=== PATIENT | male | born 1985 | race Caucasian/White ===

== ENCOUNTER 2017-07-01 19:56 | Inpatient (IN) | payer SELFPAY, OTHER ==
[~2017-07-01 19:56] MED LIST: ETOMIDATE 20 MG INJ; PROPOFOL 200 MG INJ; SUCCINYLCHOLINE CHLORIDE 100 MG/5 ML SYG IV
[2017-07-01] MEDS ORDERED: HALOPERIDOL 5 MG INJ (22:32)
[2017-07-01] MEDS ORDERED: LORAZEPAM 2 MG INJ (22:32)
[2017-07-01] MEDS ORDERED: DIPHENHYDRAMINE 50 MG INJ (22:32)
[2017-07-01] MEDS: LORAZEPAM 2 MG INJ IM (22:33)
[2017-07-01] MEDS: HALOPERIDOL 5 MG INJ IM (22:33)
[2017-07-01] MEDS: DIPHENHYDRAMINE 50 MG INJ IM (22:33)
[2017-07-01] MEDS: LORAZEPAM 2 MG INJ IV (22:50)
[2017-07-01 22:52] LABS: ADD MAN DIFF? NO
[2017-07-01 22:54] LABS: WHITE BLOOD COUNT 16.5 10^3/ul (4.8-10.8)
[2017-07-01 22:54] LABS: BASOPHILS % 0.2 % (0.0-2.0); EOSINOPHILS % 0.1 % (0.0-7.0); HEMATOCRIT 41.4 % (42.0-52.0); HEMOGLOBIN 14.8 g/dl (14.0-18.0); LYMPHOCYTES # 1.9 10^3/ul (0.8-2.9); LYMPHOCYTES % 11.7 % (15.0-51.0); MEAN CORPUSCULAR HEMOGLOBIN 30.1 pg (29.0-33.0); MEAN CORPUSCULAR HGB CONC 35.7 g/dl (32.0-37.0); MEAN CORPUSCULAR VOLUME 84.1 fl (82.0-101.0); MONOCYTE # 0.9 10^3/ul (0.3-0.9); MONOCYTES % 5.2 % (0.0-11.0); NEUTROPHIL # 13.6 10^3/ul (1.6-7.5); NEUTROPHILS % 82.3 % (39.0-77.0); PLATELET COUNT 230 10^3/UL (140-415); RED BLOOD COUNT 4.92 10^6/ul (4.70-6.10); RED CELL DISTRIBUTION WIDTH 12.1 % (11.5-14.5)
[2017-07-01] MEDS: HALOPERIDOL 5 MG INJ IV (23:00)
[2017-07-01] MEDS ORDERED: ETOMIDATE 20 MG INJ (23:04)
[2017-07-01] MEDS: SUCCINYLCHOLINE CHLORIDE 100 MG/5 ML SYG IV (23:05)
[2017-07-01] MEDS: ETOMIDATE 20 MG INJ IV (23:05)
[2017-07-01] MEDS ORDERED: PROPOFOL 100 ML (23:07)
[2017-07-01] MEDS: PROPOFOL 100 ML IV (23:11)
[2017-07-01 23:19] LABS: ALANINE AMINOTRANSFERASE 28 IU/L (13-69); ALBUMIN 5.4 g/dl (3.3-4.9); ALBUMIN/GLOBULIN RATIO 1.92; ALKALINE PHOSPHATASE 60 IU/L (42-121); ANION GAP 24 (8-16); ASPARTATE AMINO TRANSFERASE 25 IU/L (15-46); BILIRUBIN,INDIRECT 0.1 mg/dl (0-1.1); BILIRUBIN,TOTAL 0.1 mg/dl (0.2-1.3); BLOOD UREA NITROGEN 19 mg/dl (7-20); CALCIUM 10.4 mg/dl (8.4-10.2); CARBON DIOXIDE 25 mmol/L (21-31); CHLORIDE 103 mmol/L (97-110); CHOL/HDL RATIO 3.2 RATIO; CHOLESTEROL 221 mg/dl (100-200); CREATININE 0.91 mg/dl (0.61-1.24); GLUCOSE 143 mg/dl (70-220); HDL CHOLESTEROL 67 mg/dl (28-63); LDL CHOLESTEROL,CALCULATED 125 mg/dl; POTASSIUM 4.5 mmol/L (3.5-5.1); SODIUM 147 mmol/L (135-144); TOTAL PROTEIN 8.2 g/dl (6.1-8.1); TRIGLYCERIDES 145 mg/dl (0-149)
[2017-07-01 23:21] LABS: PROTIME 13.3 Sec (11.9-14.9)
[2017-07-01 23:22] LABS: PARTIAL THROMBOPLASTIN TIME 22.8 Sec (25.0-35.0)
[2017-07-01 23:38] LABS: TROPONIN-I < 0.012 ng/ml (0.00-0.12)
[2017-07-01 23:38] LABS: HEMOGLOBIN A1C 5.1 % (0-5.9)
[2017-07-02 00:40] LABS: ADD UMIC YES; UR ASCORBIC ACID NEGATIVE (NEGATIVE); UR BILIRUBIN (Dip) NEGATIVE (NEGATIVE); UR BLOOD (Dip) 1+ mg/dL (NEGATIVE); UR CLARITY CLEAR (CLEAR); UR COLOR YELLOW (YELLOW); UR GLUCOSE (Dip) NEGATIVE (NEGATIVE); UR KETONES (Dip) 1+ mg/dL (NEGATIVE); UR LEUKOCYTE ESTERASE (Dip) NEGATIVE Leu/ul (NEGATIVE); UR NITRITE (Dip) NEGATIVE (NEGATIVE); UR RBC 1 /HPF (0-5); UR SPECIFIC GRAVITY (Dip) 1.024 (1.003-1.030); UR TOTAL PROTEIN (Dip) 1+ mg/dl (NEGATIVE); UR UROBILINOGEN (Dip) NEGATIVE (NEGATIVE); UR WBC 1 /HPF (0-5)
[2017-07-02] MEDS: SOD CHLORIDE 0.9% 1,000 ML IV ×3 (00:47→14:45)
[2017-07-02] MEDS: MIDAZOLAM (DRIP) 50 mg/50 mL 50 ML IV (00:49)
[2017-07-02 01:11] LABS: AMPHETAMINE/METHAMPHETAMINE Negative (NEGATIVE); BARBITURATES Negative (NEGATIVE); BENZODIAZEPINES Negative (NEGATIVE); CANNABINOIDS Negative (NEGATIVE); COCAINE Negative (NEGATIVE); OPIATES Negative (NEGATIVE)
[2017-07-02 02:10] LABS: AADO2 Arterial 101.1 mmHg (7.0-24.0); Allen Test ACCEPTAB; Arterial Base Excess -1.3 mmol/L (-3.0-3); Arterial Blood Gas Oxygen Sat 98.3 mmHG (95.0-98.0); Arterial COHb 0.3 % (0.0-3.0); Arterial Fraction of Oxyhgb 97.5 % (93.0-99.0); Arterial HCO3 23.3 mmol/L (22.0-26.0); Arterial MetHb 0.5 % (0.0-1.5); Arterial Total Hemglobin 14.4 g/dl (12.0-18.0); Arterial pCO2 38.7 mmhg (35-45); MODE VENT - AC/VC+; Site Right Radial
[2017-07-02] MEDS: CEFEPIME 2GM/50 ML (PMX) 50 ML IVPB ×2 (02:38→12:31)
[2017-07-02] MEDS: KETOROLAC 30 MG INJ IV (02:47)
[2017-07-02] MEDS: VANCOMYCIN 1 GM (PMX) 250 ML IVPB (02:50)
[2017-07-02 03:29] LABS: LACTIC ACID 1.6 mmol/L (0.5-2.0)
[2017-07-02] MEDS ORDERED: VANCOMYCIN IV PER PHARMACY XX (04:00)
[2017-07-02] MEDS: FENTAnyl (DRIP) 1000 mcg/100mL 100 ML IV (04:12)
[2017-07-02 04:44] LABS: ETHANOL < 10.0 mg/dl
[2017-07-02 05:48] LABS: LACTIC ACID 1.4 mmol/L (0.5-2.0)
[2017-07-02 06:07] LABS: ADD MAN DIFF? NO
[2017-07-02 06:15] LABS: BASOPHILS % 0.1 % (0.0-2.0); EOSINOPHILS % 0.1 % (0.0-7.0); HEMATOCRIT 36.3 % (42.0-52.0); HEMOGLOBIN 13.5 g/dl (14.0-18.0); LYMPHOCYTES # 1.6 10^3/ul (0.8-2.9); LYMPHOCYTES % 18.4 % (15.0-51.0); MEAN CORPUSCULAR HEMOGLOBIN 31.7 pg (29.0-33.0); MEAN CORPUSCULAR HGB CONC 37.2 g/dl (32.0-37.0); MEAN CORPUSCULAR VOLUME 85.2 fl (82.0-101.0); MEAN PLATELET VOLUME 11.2 fl (7.4-10.4); MONOCYTE # 0.7 10^3/ul (0.3-0.9); MONOCYTES % 7.9 % (0.0-11.0); NEUTROPHIL # 6.3 10^3/ul (1.6-7.5); NEUTROPHILS % 73.2 % (39.0-77.0); PLATELET COUNT 195 10^3/UL (140-415); RED BLOOD COUNT 4.26 10^6/ul (4.70-6.10); RED CELL DISTRIBUTION WIDTH 12.4 % (11.5-14.5)
[2017-07-02 06:15] LABS: WHITE BLOOD COUNT 8.7 10^3/ul (4.8-10.8)
[2017-07-02] MEDS: VANCOMYCIN 1 GM in 250 ML IVPB (06:25)
[2017-07-02 06:50] LABS: ALANINE AMINOTRANSFERASE 26 IU/L (13-69); ALBUMIN 4.4 g/dl (3.3-4.9); ALBUMIN/GLOBULIN RATIO 1.69; ALKALINE PHOSPHATASE 45 IU/L (42-121); ANION GAP 17 (8-16); ASPARTATE AMINO TRANSFERASE 37 IU/L (15-46); BILIRUBIN,INDIRECT 0.1 mg/dl (0-1.1); BILIRUBIN,TOTAL 0.1 mg/dl (0.2-1.3); BLOOD UREA NITROGEN 15 mg/dl (7-20); CALCIUM 8.6 mg/dl (8.4-10.2); CARBON DIOXIDE 23 mmol/L (21-31); CHLORIDE 105 mmol/L (97-110); CREATININE 0.86 mg/dl (0.61-1.24); GLUCOSE 115 mg/dl (70-220); POTASSIUM 3.2 mmol/L (3.5-5.1); SODIUM 142 mmol/L (135-144)
[2017-07-02 06:57] LABS: LACTIC ACID 1.6 mmol/L (0.5-2.0)
[2017-07-02 07:43] LABS: HIV 1&2 ANTIBODY NEGATIVE (NEGATIVE)
[2017-07-02] MEDS: ACYCLOVIR 500 MG in DEXTROSE 5% 100 ML IVPB (13:14)
[2017-07-02] MEDS: VANCOMYCIN 1.25 GM in SOD CHLORIDE 0.9% 250 ML IVPB (14:29)
[2017-07-02 15:18] LABS: RAPID PLASMA REAGIN NONREACTIVE (NR)
[2017-07-02] MEDS: LORAZEPAM 2 MG INJ IV ×2 (21:00→22:00)
[2017-07-02] MEDS: HALOPERIDOL 5 MG INJ IM (22:00)
[2017-07-03] MEDS: FAMOTIDINE 20 MG INJ IV ×2 (00:11→08:23)
[2017-07-03] MEDS: CEFEPIME 2GM/50 ML (PMX) 50 ML IVPB ×4 (01:00→21:30)
[2017-07-03] MEDS: ACYCLOVIR 500 MG in DEXTROSE 5% 100 ML IVPB ×3 (01:44→14:56)
[2017-07-03] MEDS: VANCOMYCIN 1.25 GM in SOD CHLORIDE 0.9% 250 ML IVPB ×3 (02:53→16:00)
[2017-07-03] MEDS: PROPOFOL 100 ML IV ×2 (04:28→07:23)
[2017-07-03] MEDS: SOD CHLORIDE 0.9% 1,000 ML IV (04:29)
[2017-07-03] MEDS: MIDAZOLAM (DRIP) 50 mg/50 mL 50 ML IV ×2 (04:41→08:24)
[2017-07-03 06:06] LABS: ADD MAN DIFF? NO
[2017-07-03 06:23] LABS: WHITE BLOOD COUNT 7.7 10^3/ul (4.8-10.8)
[2017-07-03 06:23] LABS: BASOPHILS % 0.1 % (0.0-2.0); EOSINOPHILS # 0.1 10^3/ul (0.0-0.5); EOSINOPHILS % 0.7 % (0.0-7.0); HEMATOCRIT 35.2 % (42.0-52.0); HEMOGLOBIN 12.4 g/dl (14.0-18.0); LYMPHOCYTES # 1.3 10^3/ul (0.8-2.9); MEAN CORPUSCULAR HEMOGLOBIN 30.8 pg (29.0-33.0); MEAN CORPUSCULAR HGB CONC 35.2 g/dl (32.0-37.0); MEAN CORPUSCULAR VOLUME 87.3 fl (82.0-101.0); MEAN PLATELET VOLUME 10.9 fl (7.4-10.4); MONOCYTE # 0.8 10^3/ul (0.3-0.9); MONOCYTES % 10.1 % (0.0-11.0); NEUTROPHIL # 5.5 10^3/ul (1.6-7.5); PLATELET COUNT 156 10^3/UL (140-415); RED BLOOD COUNT 4.03 10^6/ul (4.70-6.10); RED CELL DISTRIBUTION WIDTH 12.3 % (11.5-14.5)
[2017-07-03 06:49] LABS: ALANINE AMINOTRANSFERASE 41 IU/L (13-69); ALBUMIN 3.7 g/dl (3.3-4.9); ALBUMIN/GLOBULIN RATIO 1.48; ALKALINE PHOSPHATASE 46 IU/L (42-121); ANION GAP 11 (8-16); ASPARTATE AMINO TRANSFERASE 137 IU/L (15-46); BILIRUBIN,INDIRECT 0.4 mg/dl (0-1.1); BILIRUBIN,TOTAL 0.4 mg/dl (0.2-1.3); BLOOD UREA NITROGEN 11 mg/dl (7-20); CALCIUM 8.3 mg/dl (8.4-10.2); CARBON DIOXIDE 28 mmol/L (21-31); CHLORIDE 106 mmol/L (97-110); CREATININE 0.83 mg/dl (0.61-1.24); GLUCOSE 103 mg/dl (70-220); POTASSIUM 3.3 mmol/L (3.5-5.1); SODIUM 142 mmol/L (135-144); TOTAL PROTEIN 6.2 g/dl (6.1-8.1)
[2017-07-03 08:06] LABS: AADO2 Arterial 104.6 mmHg (7.0-24.0); Allen Test ACCEPTAB; Arterial Base Excess -0.4 mmol/L (-3.0-3); Arterial COHb 0.3 % (0.0-3.0); Arterial Fraction of Oxyhgb 97.2 % (93.0-99.0); Arterial HCO3 24.7 mmol/L (22.0-26.0); Arterial MetHb 0.5 % (0.0-1.5); Arterial Total Hemglobin 12.8 g/dl (12.0-18.0); Arterial pCO2 42.3 mmhg (35-45); MODE VENT - AC; Site Right Radial
[2017-07-03] MEDS: POTASSIUM CHLORIDE 100 ML IVPB ×2 (08:23→11:14)
[2017-07-03] MEDS: FENTAnyl (DRIP) 1000 mcg/100mL 100 ML IV (09:08)
[2017-07-03 11:34] LABS: AADO2 Arterial 192.6 mmHg (7.0-24.0); Allen Test ACCEPTAB; Arterial COHb 0.2 % (0.0-3.0); Arterial Fraction of Oxyhgb 85.6 % (93.0-99.0); Arterial HCO3 26.1 mmol/L (22.0-26.0); Arterial MetHb 0.3 % (0.0-1.5); Arterial Total Hemglobin 14.5 g/dl (12.0-18.0); Arterial pCO2 39.1 mmhg (35-45); Blood Gas PS 10; MODE VENT - CPAP; Site Right Radial
[2017-07-03] MEDS: ALBUTEROL/IPRATROPIUM (NEB) 3 ML AMP HHN (11:59)
[2017-07-03] MEDS: morphine 2 MG INJ IV ×3 (13:00→14:50)
[2017-07-03] MEDS: KETOROLAC 30 MG INJ IV ×2 (13:49→21:57)
[2017-07-03 15:36] LABS: VANCOMYCIN,TROUGH 9.5 ug/ml (10.0-20.0)
[2017-07-03] MEDS: LIDOCAINE 1% (MDV) 10 ML INJ (16:30)
[2017-07-03 18:36] LABS: CSF MN% 99.5 %; CSF PMN% 0.5 %; CSF RBC 0 /uL (0-0)
[2017-07-03 18:38] LABS: CSF MN% 98.8 %; CSF PMN% 1.2 %; CSF RBC 0 /uL (0-0)
[2017-07-03 18:43] LABS: TOTAL PROTEIN,CSF 115 mg/dl (12-60)
[2017-07-03 18:43] LABS: GLUCOSE,CSF 71 mg/dl (50-80)
[2017-07-03 20:08] LABS: CSF COLOR COLORLESS
[2017-07-03 20:08] LABS: CSF CLARITY CLEAR; CSF WBC 190 /cmm (0-10); CSF#TUBE COUNT TUBE#1; CSF#TUBES REC'D 4
[2017-07-03 20:09] LABS: CSF CLARITY CLEAR; CSF COLOR COLORLESS; CSF WBC 157 /cmm (0-10); CSF#TUBE COUNT TUBE#4; CSF#TUBES REC'D 4
[2017-07-03] MEDS: DEXTROSE 5% IVPB (21:58)
[2017-07-03] MEDS: ACYCLOVIR IVPB (21:58)
[2017-07-04] MEDS: VANCOMYCIN 1.5 GM in SOD CHLORIDE 0.9% 250 ML IVPB ×3 (00:20→17:26)
[2017-07-04] MEDS: CEFEPIME 2GM/50 ML (PMX) 50 ML IVPB ×3 (05:06→21:11)
[2017-07-04] MEDS: KETOROLAC 30 MG INJ IV ×3 (05:07→17:27)
[2017-07-04 05:37] LABS: ADD MAN DIFF? NO
[2017-07-04 05:42] LABS: WHITE BLOOD COUNT 7.4 10^3/ul (4.8-10.8)
[2017-07-04 05:42] LABS: BASOPHILS % 0.1 % (0.0-2.0); EOSINOPHILS # 0.1 10^3/ul (0.0-0.5); EOSINOPHILS % 0.9 % (0.0-7.0); HEMATOCRIT 36.5 % (42.0-52.0); HEMOGLOBIN 12.9 g/dl (14.0-18.0); LYMPHOCYTES # 1.7 10^3/ul (0.8-2.9); LYMPHOCYTES % 22.6 % (15.0-51.0); MEAN CORPUSCULAR HEMOGLOBIN 30.2 pg (29.0-33.0); MEAN CORPUSCULAR HGB CONC 35.3 g/dl (32.0-37.0); MEAN CORPUSCULAR VOLUME 85.5 fl (82.0-101.0); MEAN PLATELET VOLUME 10.7 fl (7.4-10.4); MONOCYTE # 0.7 10^3/ul (0.3-0.9); MONOCYTES % 8.9 % (0.0-11.0); NEUTROPHILS % 67.1 % (39.0-77.0); PLATELET COUNT 165 10^3/UL (140-415); RED BLOOD COUNT 4.27 10^6/ul (4.70-6.10); RED CELL DISTRIBUTION WIDTH 11.8 % (11.5-14.5)
[2017-07-04] MEDS: ACYCLOVIR IVPB ×3 (06:01→22:20)
[2017-07-04] MEDS: DEXTROSE 5% IVPB ×3 (06:01→22:20)
[2017-07-04 06:29] LABS: ANION GAP 14 (8-16); BLOOD UREA NITROGEN 8 mg/dl (7-20); CALCIUM 8.6 mg/dl (8.4-10.2); CARBON DIOXIDE 28 mmol/L (21-31); CHLORIDE 107 mmol/L (97-110); CREATININE 0.76 mg/dl (0.61-1.24); GLUCOSE 116 mg/dl (70-220); MAGNESIUM 2.1 mg/dl (1.7-2.5); POTASSIUM 3.3 mmol/L (3.5-5.1); SODIUM 146 mmol/L (135-144)
[2017-07-04] MEDS: POTASSIUM CHLORIDE (SR) 20 MEQ TAB PO (09:37)
[2017-07-05 00:08] LABS: VANCOMYCIN,TROUGH 9.3 ug/ml (10.0-20.0)
[2017-07-05] MEDS: KETOROLAC 30 MG INJ IV (00:08)
[2017-07-05] MEDS: VANCOMYCIN 1.5 GM in SOD CHLORIDE 0.9% 250 ML IVPB ×2 (00:15→08:45)
[2017-07-05] MEDS: CEFEPIME 2GM/50 ML (PMX) 50 ML IVPB (05:20)
[2017-07-05] MEDS: ACYCLOVIR IVPB ×2 (06:22→21:42)
[2017-07-05] MEDS: DEXTROSE 5% IVPB ×2 (06:22→21:42)
[2017-07-05] MEDS: POTASSIUM CHLORIDE (SR) 20 MEQ TAB PO (12:48)
[2017-07-05] MEDS: ACYCLOVIR 500 MG in DEXTROSE 5% 100 ML IVPB (16:33)
[2017-07-06] MEDS: DEXTROSE 5% IVPB (06:08)
[2017-07-06] MEDS: ACYCLOVIR IVPB (06:08)
== END 2017-07-06 13:55 | disposition home or self-care (01) | DRG 97 ==
LOC: MS2 07-04 15:25 → E/R 19:56 → ICU 07-02 19:55
PROVIDERS: Family Medicine
PROC: 5A1945Z Respiratory Ventilation, 24-96 Consecutive Hours (ICD-10-PCS; principal; 2017-07-01)
PROC: 0BH17EZ Insertion of Endotracheal Airway into Trachea, Via Natural or Artificial Opening (ICD-10-PCS; 2017-07-01)
PROC: 009U3ZX Drainage of Spinal Canal, Percutaneous Approach, Diagnostic (ICD-10-PCS; 2017-07-03)
PROC: B01BYZZ Fluoroscopy of Spinal Cord using Other Contrast (ICD-10-PCS; 2017-07-03)
DX: A86 Unspecified viral encephalitis (principal); G93.40 Encephalopathy, unspecified; J18.9 Pneumonia, unspecified organism; J96.91 Respiratory failure, unspecified with hypoxia; R47.01 Aphasia; D69.6 Thrombocytopenia, unspecified; R20.2 Paresthesia of skin; E66.9 Obesity, unspecified; Z68.32 Body mass index [BMI] 32.0-32.9, adult
CPT/HCPCS: 31500; 36600; 70450; 70544; 70549; 70553; 71045; 71250; 73510; 80048; 80053; 80061; 80202; 80306; 80307; 81001; 82040; 82042; 82784; 82803; 82945; 82962; 83036; 83605; 83615; 83735; 83873; 83916; 84100; 84157; 84484; 85025; 85610; 85730; 86403; 86592; 86635; 86703; 86713; 86738; 87040; 87070; 87077; 87081; 87086; 87102; 87275; 87276; 87279; 87280; 87400; 87449; 87529; 88104; 89051; 89220; 93005; 93306; 94002; 94003; 94664; 94770

== ENCOUNTER 2017-07-10 12:43 | Inpatient (IN) | payer MEDICAID ==
[2017-07-10] MEDS: LORAZEPAM 2 MG INJ IV (15:56)
[2017-07-10 15:58] LABS: ADD MAN DIFF? NO
[2017-07-10 16:01] LABS: WHITE BLOOD COUNT 10.1 10^3/ul (4.8-10.8)
[2017-07-10 16:01] LABS: ABNORMAL IP MESSAGE 1; BASOPHILS % 0.1 % (0.0-2.0); HEMATOCRIT 40.8 % (42.0-52.0); LYMPHOCYTES # 0.6 10^3/ul (0.8-2.9); LYMPHOCYTES % 5.6 % (15.0-51.0); MEAN CORPUSCULAR HEMOGLOBIN 30.7 pg (29.0-33.0); MEAN CORPUSCULAR HGB CONC 36.8 g/dl (32.0-37.0); MEAN CORPUSCULAR VOLUME 83.4 fl (82.0-101.0); MEAN PLATELET VOLUME 10.3 fl (7.4-10.4); MONOCYTE # 0.3 10^3/ul (0.3-0.9); MONOCYTES % 2.7 % (0.0-11.0); NEUTROPHIL # 9.2 10^3/ul (1.6-7.5); NEUTROPHILS % 91.1 % (39.0-77.0); PLATELET COUNT 279 10^3/UL (140-415); POSITIVE DIFF @See below; RED BLOOD COUNT 4.89 10^6/ul (4.70-6.10); RED CELL DISTRIBUTION WIDTH 11.7 % (11.5-14.5)
[2017-07-10 16:51] LABS: ALANINE AMINOTRANSFERASE 57 IU/L (13-69); ALBUMIN 4.8 g/dl (3.3-4.9); ALBUMIN/GLOBULIN RATIO 1.41; ALKALINE PHOSPHATASE 60 IU/L (42-121); ANION GAP 22 (8-16); ASPARTATE AMINO TRANSFERASE 36 IU/L (15-46); BILIRUBIN,INDIRECT 0.3 mg/dl (0-1.1); BILIRUBIN,TOTAL 0.3 mg/dl (0.2-1.3); BLOOD UREA NITROGEN 17 mg/dl (7-20); CALCIUM 9.5 mg/dl (8.4-10.2); CARBON DIOXIDE 19 mmol/L (21-31); CHLORIDE 104 mmol/L (97-110); GLUCOSE 145 mg/dl (70-220); POTASSIUM 3.6 mmol/L (3.5-5.1); SODIUM 141 mmol/L (135-144); TOTAL PROTEIN 8.2 g/dl (6.1-8.1)
[2017-07-10 16:52] LABS: ACETAMINOPHEN < 10.0 ug/ml (10.0-30.0)
[2017-07-10 16:53] LABS: ETHANOL < 10.0 mg/dl; SALICYLATE < 1.0 mg/dl (5.0-30.0)
[2017-07-10] MEDS: CEFEPIME 2GM/50 ML (PMX) 50 ML IVPB (17:01)
[2017-07-10] MEDS: VANCOMYCIN 1 GM (PMX) 250 ML IVPB (17:01)
[2017-07-10 17:02] LABS: INR 1.02; PARTIAL THROMBOPLASTIN TIME 25.2 Sec (25.0-35.0); PROTIME 13.5 Sec (11.9-14.9); PT RATIO 1.1
[2017-07-10 17:07] LABS: C-REACTIVE PROTEIN 0.7 mg/dl (0.0-0.9)
[2017-07-10] MEDS: ACETAMINOPHEN 500 MG TAB PO (17:51)
[2017-07-10] MEDS: ONDANSETRON 4 MG INJ IV ×2 (17:51→20:08)
[2017-07-10] MEDS: HYDROmorphONE 0.5 MG/0.5 ML SYG IV (17:51)
[2017-07-10 18:30] LABS: LACTIC ACID 1.9 mmol/L (0.5-2.0)
[2017-07-10] MEDS ORDERED: ACETAMINOPHEN 325 MG TAB PO ×2 (19:00→20:00)
[2017-07-10] MEDS ORDERED: ONDANSETRON 4 MG INJ IV (19:00)
[2017-07-10] MEDS: SOD CHLORIDE 0.9% 1,000 ML IV (19:11)
[2017-07-10] MEDS ORDERED: NACL 0.9% 3 ML SYG IV (20:00)
[2017-07-10] MEDS ORDERED: DOCUSATE SODIUM 100 MG CAP PO (20:00)
[2017-07-10] MEDS ORDERED: MAGNESIUM HYDROXIDE 30ML CUP PO (20:00)
[2017-07-10] MEDS: D5W-0.45 NACL + KCL 20 MEQ 1,000 ML IV (20:09)
[2017-07-10] MEDS: morphine 2 MG INJ IV (20:09)
[2017-07-10] MEDS: SUMATRIPTAN 6 MG/0.5 ML INJ SC (22:20)
[2017-07-11] MEDS: ACYCLOVIR 500 MG in SOD CHLORIDE 0.9% 100 ML IVPB ×2 (00:49→08:00)
[2017-07-11] MEDS: HYDROCODONE/APAP (5/325) TAB PO (04:51)
[2017-07-11] MEDS ORDERED: SUMATRIPTAN 50 MG TAB PO (06:00)
[2017-07-11] MEDS: D5W-0.45 NACL + KCL 20 MEQ 1,000 ML IV ×2 (06:39→16:14)
[2017-07-11 08:27] LABS: ADD MAN DIFF? NO
[2017-07-11 08:28] LABS: BASOPHILS % 0.2 % (0.0-2.0); EOSINOPHILS % 0.5 % (0.0-7.0); HEMATOCRIT 37.9 % (42.0-52.0); HEMOGLOBIN 13.5 g/dl (14.0-18.0); LYMPHOCYTES % 22.9 % (15.0-51.0); MEAN CORPUSCULAR HEMOGLOBIN 30.5 pg (29.0-33.0); MEAN CORPUSCULAR HGB CONC 35.6 g/dl (32.0-37.0); MEAN CORPUSCULAR VOLUME 85.7 fl (82.0-101.0); MEAN PLATELET VOLUME 10.6 fl (7.4-10.4); MONOCYTE # 0.8 10^3/ul (0.3-0.9); MONOCYTES % 9.8 % (0.0-11.0); NEUTROPHIL # 5.7 10^3/ul (1.6-7.5); PLATELET COUNT 256 10^3/UL (140-415); RED BLOOD COUNT 4.42 10^6/ul (4.70-6.10); RED CELL DISTRIBUTION WIDTH 12.1 % (11.5-14.5)
[2017-07-11 08:28] LABS: WHITE BLOOD COUNT 8.6 10^3/ul (4.8-10.8)
[2017-07-11 08:46] LABS: ANION GAP 17 (8-16); BLOOD UREA NITROGEN 11 mg/dl (7-20); CALCIUM 9.3 mg/dl (8.4-10.2); CARBON DIOXIDE 26 mmol/L (21-31); CHLORIDE 105 mmol/L (97-110); CREATININE 0.89 mg/dl (0.61-1.24); GLUCOSE 108 mg/dl (70-220); MAGNESIUM 2.2 mg/dl (1.7-2.5); PHOSPHORUS 4.7 mg/dl (2.5-4.9); POTASSIUM 3.7 mmol/L (3.5-5.1); SODIUM 144 mmol/L (135-144)
[2017-07-11 10:35] LABS: HEMOGLOBIN A1C 5.2 % (0-5.9)
[2017-07-11] MEDS: ACYCLOVIR 1,000 MG in SOD CHLORIDE 0.9% 100 ML IVPB ×2 (14:40→22:00)
[2017-07-12] MEDS: D5W-0.45 NACL + KCL 20 MEQ 1,000 ML IV ×2 (01:43→18:23)
[2017-07-12] MEDS: HYDROCODONE/APAP (5/325) TAB PO (03:25)
[2017-07-12] MEDS: ACYCLOVIR 1,000 MG in SOD CHLORIDE 0.9% 100 ML IVPB ×2 (06:40→14:02)
[2017-07-12 07:34] LABS: ADD MAN DIFF? NO
[2017-07-12 07:37] LABS: WHITE BLOOD COUNT 6.9 10^3/ul (4.8-10.8)
[2017-07-12 07:38] LABS: BASOPHILS % 0.4 % (0.0-2.0); EOSINOPHILS # 0.1 10^3/ul (0.0-0.5); EOSINOPHILS % 1.5 % (0.0-7.0); HEMATOCRIT 37.4 % (42.0-52.0); HEMOGLOBIN 13.3 g/dl (14.0-18.0); LYMPHOCYTES # 2.4 10^3/ul (0.8-2.9); LYMPHOCYTES % 34.7 % (15.0-51.0); MEAN CORPUSCULAR HEMOGLOBIN 30.5 pg (29.0-33.0); MEAN CORPUSCULAR HGB CONC 35.6 g/dl (32.0-37.0); MEAN CORPUSCULAR VOLUME 85.8 fl (82.0-101.0); MEAN PLATELET VOLUME 10.4 fl (7.4-10.4); MONOCYTE # 0.6 10^3/ul (0.3-0.9); MONOCYTES % 9.2 % (0.0-11.0); NEUTROPHIL # 3.7 10^3/ul (1.6-7.5); NEUTROPHILS % 53.6 % (39.0-77.0); PLATELET COUNT 225 10^3/UL (140-415); RED BLOOD COUNT 4.36 10^6/ul (4.70-6.10)
[2017-07-12 08:12] LABS: ANION GAP 15 (8-16); BLOOD UREA NITROGEN 14 mg/dl (7-20); CARBON DIOXIDE 25 mmol/L (21-31); CHLORIDE 105 mmol/L (97-110); CREATININE 0.82 mg/dl (0.61-1.24); GLUCOSE 97 mg/dl (70-220); POTASSIUM 3.9 mmol/L (3.5-5.1); SODIUM 141 mmol/L (135-144)
[2017-07-12 08:28] LABS: FREE THYROXINE INDEX (Calc) 3.19 ug/ml (0.65-3.89); T3 UPTAKE 37.1 % (23.5-40.5); T4 (THYROXINE) 8.6 ug/dl (5.5-11.0)
[2017-07-12 08:37] LABS: ERYTHROCYTE SEDIMENTATION RATE 6 mm/Hr (0-15)
[2017-07-12] MEDS ORDERED: ACYCLOVIR 700 MG in SOD CHLORIDE 0.9% 100 ML IVPB (22:00)
[2017-07-13 12:41] LABS: CYTOMEGALOVIRUS ANTIBODY (IGM) <30.00 AU/mL
[2017-07-13 18:36] LABS: EBV VIRAL CAPSID AG AB (IGM) <36.00 U/mL
[2017-07-15 18:01] LABS: NIL 0.02 IU/mL; QUANTIFERON(R)-TB GOLD NEGATIVE (NEGATIVE); TB-NIL 0.01 IU/mL
[2017-07-17 17:26] LABS: LYME 18 KD (IGG) BAND NON-REACTIVE; LYME 23 KD (IGG) BAND NON-REACTIVE; LYME 23 KD (IGM) BAND NON-REACTIVE; LYME 28 KD (IGG) BAND NON-REACTIVE; LYME 30 KD (IGG) BAND NON-REACTIVE; LYME 39 KD (IGG) BAND NON-REACTIVE; LYME 39 KD (IGM) BAND NON-REACTIVE; LYME 41 KD (IGG) BAND NON-REACTIVE; LYME 41 KD (IGM) BAND NON-REACTIVE; LYME 45 KD (IGG) BAND NON-REACTIVE; LYME 58 KD (IGG) BAND NON-REACTIVE; LYME 66 KD (IGG) BAND NON-REACTIVE; LYME 93 KD (IGG) BAND NON-REACTIVE
== END 2017-07-12 20:50 | disposition home or self-care (01) | DRG 70 ==
LOC: TEL 18:34 → FTE 12:43
DX: G93.49 Other encephalopathy (principal); G03.9 Meningitis, unspecified; A86 Unspecified viral encephalitis
CPT/HCPCS: 36415; 70450; 71045; 80048; 80053; 80306; 82962; 83036; 83605; 83735; 84100; 84436; 84479; 85025; 85610; 85651; 85730; 86140; 86480; 86617; 86635; 86644; 86658; 86664; 86738; 86788; 86789; 87040; 87081; 93005; 96372; 96374; 96375; 96376; 99285-25